=== PATIENT | female | born 1965 | race Hispanic/Latino ===

== ENCOUNTER 2020-09-23 06:22 | Day surgery (SDC) | payer BC ==
[2020-09-17 13:58] LABS: EOSINOPHILS % (AUTO) 1.4 % (0.0-8.0); HEMATOCRIT 43.5 % (36-48); LYMPHOCYTES % (AUTO) 23.3 % (21.0-51.0); MEAN CORPUSCULAR HEMOGLOBIN 29.3 pg (27.0-33.0); MEAN CORPUSCULAR HGB CONC 33.1 g/dL (32.0-36.0); MEAN CORPUSCULAR VOLUME 88.6 fL (79-99); NEUTROPHILS % (AUTO) 65.6 % (40.0-77.0); PLATELET COUNT (AUTO) 311 K/uL (130-400); RED BLOOD CELL COUNT(AUTO) 4.91 MIL/uL (4.00-5.50); RED CELL DISTRIBUTION WIDTH 13.1 % (11.0-15.5); WHITE BLOOD COUNT (AUTO) 7.3 K/uL (4.8-10.8)
[2020-09-22 13:31] VITALS: BP 116/74
[~2020-09-23] VITALS: Ht 154.9 cm; Wt 69.3 kg
[2020-09-23] VITALS (17 sets, daily range): BP systolic 99–114; BP diastolic 56–70
[~2020-09-23 06:22] MED LIST: CALDOLOR 800MG+NS 250ML 250 ML IV SCH; LACTATED RINGERS 1000ML 1,000 ML IV SCH; TOPI25TA48 PO
[2020-09-23] MEDS: CEFAZOLIN SODIUM 1 GM VIAL IVP SCH ×2 (07:12→07:50)
[2020-09-23] MEDS ORDERED: FENTANYL CITRATE PF 50 MCG/1 ML 2ML VIAL ONE (07:41)
[2020-09-23] MEDS ORDERED: PROPOFOL 10 MG/ML 20ML VIAL IV ONE (07:41)
[2020-09-23] MEDS ORDERED: MIDAZOLAM HCL 1 MG/ML 2ML VIAL ONE (07:41)
[2020-09-23] MEDS ORDERED: SUCCINYLCHOLINE CHLORIDE 20 MG/ML 10 ML VIAL ONE (07:42)
[2020-09-23] MEDS ORDERED: ROCURONIUM 10MG/1ML SYR 10 MG/ML ML ONE (07:42)
[2020-09-23] MEDS ORDERED: LIDOCAINE HCL-MPF 1% 5ML AMP IJ ONE (07:42)
[2020-09-23] MEDS ORDERED: MEPERIDINE-PF 25 MG/ML SYG ONE (08:45)
== END 2020-09-23 10:00 | disposition home or self-care (01) ==
LOC: DAH 06:22
PROVIDERS: ATTEND Obstetrics & Gynecology
DX: N95.0 Postmenopausal bleeding (principal); Z20.822 Contact with and (suspected) exposure to COVID-19; N85.8 Other specified noninflammatory disorders of uterus; N85.4 Malposition of uterus; Z98.890 Other specified postprocedural states; Z98.891 History of uterine scar from previous surgery; Z83.42 Family history of familial hypercholesterolemia; Z80.8 Family history of malignant neoplasm of other organs or systems; Z83.3 Family history of diabetes mellitus; Z79.899 Other long term (current) drug therapy
CPT/HCPCS: 36415 ×2; 58558; 85025; 86850 ×2; 86900 ×2; 86901 ×2; 87635; A4215 ×2; A4221 ×2; A4222 ×2; A4223 ×2; A4351; A4355; A4663 ×2; A6260; C9803; J0330; J0690; J1741 ×3; J2175; J2250; J2704; J3010; J3490; J7030 ×2; J7120

== ENCOUNTER → 2020-09-28 | Outpatient (CLI) | payer BC ==
[~2020-09-28] MED LIST changes: -CALDOLOR 800MG+NS 250ML 250 ML IV SCH; -LACTATED RINGERS 1000ML 1,000 ML IV SCH
== END | disposition home or self-care (01) ==
LOC: RAH 09:41 → EDUNIT# 10:00
PROVIDERS: ATTEND Internal Medicine Pulmonary Disease
DX: I08.3 Combined rheumatic disorders of mitral, aortic and tricuspid valves (principal); R55 Syncope and collapse; R06.02 Shortness of breath
CPT/HCPCS: 71250; 93306; 93356

== ENCOUNTER 2020-12-08 09:00 | Inpatient (IN) | payer BC ==
[2020-12-03 16:18] LABS: BASOPHILS % (AUTO) 0.9 % (0.0-5.0); EOSINOPHILS % (AUTO) 1.4 % (0.0-8.0); HEMATOCRIT 40.5 % (36-48); LYMPHOCYTES % (AUTO) 20.7 % (21.0-51.0); MEAN CORPUSCULAR HEMOGLOBIN 28.8 pg (27.0-33.0); MEAN CORPUSCULAR HGB CONC 33.3 g/dL (32.0-36.0); MEAN CORPUSCULAR VOLUME 86.4 fL (79-99); MONOCYTES % (AUTO) 8.2 % (3.0-13.0); NEUTROPHILS % (AUTO) 68.3 % (40.0-77.0); PLATELET COUNT (AUTO) 294 K/uL (130-400); RED BLOOD CELL COUNT(AUTO) 4.69 MIL/uL (4.00-5.50); RED CELL DISTRIBUTION WIDTH 12.8 % (11.0-15.5); WHITE BLOOD COUNT (AUTO) 9.2 K/uL (4.8-10.8)
[~2020-12-08] VITALS: Ht 154.9 cm; Wt 71.3 kg
[2020-12-09 10:46] VITALS: BP 105/64
[2020-12-10] VITALS (22 sets, daily range): BP systolic 106–139; BP diastolic 54–77
[2020-12-10] MEDS ORDERED: CEFAZOLIN SODIUM 1 GM VIAL ONE (06:58)
[2020-12-10] MEDS ORDERED: CALDOLOR 800MG+NS 250ML 250 ML IV ONE (07:01)
[2020-12-10] MEDS ORDERED: LIDOCAINE PF 100MG/5ML (2%) SYRINGE 5ML ONE (07:33)
[2020-12-10] MEDS ORDERED: PROPOFOL 10 MG/ML 20ML VIAL IV ONE (07:33)
[2020-12-10] MEDS ORDERED: ONDANSETRON 4MG INJ ONE (07:33)
[2020-12-10] MEDS ORDERED: ROCURONIUM 10MG/1ML SYR 10 MG/ML ML ONE (07:34)
[2020-12-10] MEDS ORDERED: FENTANYL CITRATE PF 50 MCG/1 ML 2ML VIAL ONE (07:34)
[2020-12-10] MEDS ORDERED: MIDAZOLAM HCL 1 MG/ML 2ML VIAL ONE (07:34)
[2020-12-10] MEDS ORDERED: MORPHINE PF 100MG/10ML AMP IV ONE (07:36)
[2020-12-10] MEDS ORDERED: MAGNESIUM SULFATE 1 GM/2 ML VIAL ONE (07:36)
[2020-12-10] MEDS ORDERED: KETAMINE 50MG/ML SYRINGE 50 MG/ML DISP.SYRIN IV ONE (07:36)
[2020-12-10] MEDS ORDERED: LACTATED RINGERS 1000ML 1,000 ML IV SCH (08:00)
[2020-12-10] MEDS ORDERED: CEFAZOLIN SODIUM 1 GM VIAL IVP ONE (08:00)
[2020-12-10] MEDS ORDERED: EPHEDRINE SULFATE 50 MG/ML AMPULE ONE (09:06)
[2020-12-10] MEDS ORDERED: NEOSTIGMINE 5MG/5ML SYR IV ONE (09:55)
[2020-12-10] MEDS ORDERED: GLYCOPYRROLATE 1 MG/5 ML SYRINGE ONE (09:55)
[2020-12-10] MEDS ORDERED: LORATADINE 10 MG TABLET PO PRN (12:30)
[2020-12-10] MEDS ORDERED: ACETAMINOPHEN WITH CODEINE 1 TAB TAB PO PRN (12:30)
[2020-12-10] MEDS ORDERED: BISACODYL 10 MG SUPP.RECT RC PRN (12:30)
[2020-12-10] MEDS ORDERED: MEPERIDINE-PF 75 MG/ML SYG IM PRN (12:30)
[2020-12-10] MEDS ORDERED: PROMETHAZINE HCL 25 MG/ML 1ML AMPULE IM PRN ×2 (12:30)
[2020-12-10] MEDS: ONDANSETRON 4MG INJ IVP PRN ×2 (15:44→21:41)
[2020-12-10] MEDS: DEXTROSE 5 %-0.45 % NACL 1,000 ML IV PRN (15:44)
[2020-12-10] MEDS: CALDOLOR 800MG+NS 250ML 250 ML IVPB SCH ×2 (15:45→23:47)
[2020-12-10] MEDS: DOCUSATE SODIUM 100 MG CAP PO PRN (21:40)
[2020-12-10] MEDS: SIMETHICONE 80 MG TAB.CHEW PO PRN (21:41)
[2020-12-11] MEDS: DEXTROSE 5 %-0.45 % NACL 1,000 ML IV PRN (03:09)
[2020-12-11 03:10] VITALS: BP 96/48
[2020-12-11 06:36] LABS: HEMATOCRIT 33.5 % (36-48); MEAN CORPUSCULAR HEMOGLOBIN 28.9 pg (27.0-33.0); MEAN CORPUSCULAR HGB CONC 33.4 g/dL (32.0-36.0); MEAN CORPUSCULAR VOLUME 86.6 fL (79-99); RED BLOOD CELL COUNT(AUTO) 3.87 MIL/uL (4.00-5.50); RED CELL DISTRIBUTION WIDTH 12.8 % (11.0-15.5)
[2020-12-11 07:07] VITALS: BP 110/66
[2020-12-11] MEDS: SIMETHICONE 80 MG TAB.CHEW PO PRN (08:57)
[2020-12-11] MEDS: DOCUSATE SODIUM 100 MG CAP PO PRN (08:57)
[2020-12-11 11:14] VITALS: BP 123/71
[2020-12-11] MEDS ORDERED: IBUPROFEN 800 MG TAB PO SCH (12:30)
== END 2020-12-11 13:30 | disposition home or self-care (01) | DRG 743 ==
LOC: EDSTATUS 09:00 → DAHIP 12-10 06:49 → WSH 12-10 11:10
PROVIDERS: ADMIT Obstetrics & Gynecology; ATTEND Obstetrics & Gynecology
PROC: 0UT90ZZ Resection of Uterus, Open Approach (ICD-10-PCS; principal; 2020-12-10 08:25)
PROC: 0UB70ZZ Excision of Bilateral Fallopian Tubes, Open Approach (ICD-10-PCS; 2020-12-10 08:25)
DX: N85.01 Benign endometrial hyperplasia (principal); N92.1 Excessive and frequent menstruation with irregular cycle; N73.6 Female pelvic peritoneal adhesions (postinfective); N70.11 Chronic salpingitis; Z20.822 Contact with and (suspected) exposure to COVID-19
CPT/HCPCS: 36415; 84703; 85025; 85027; 86850; 86900; 86901; 87635; A4344; G0378; J0690; J1741; J2001; J2250; J2274; J2405; J2704; J2710; J3010; J3475; J3490; J7030; J7120